=== PATIENT | male | born 1955 | race Caucasian/White ===

== ENCOUNTER 2016-11-09 07:55 | Emergency (ER) | payer OTHER ==
[2016-11-09 08:03] VITALS: BP 144/78
[2016-11-09] MEDS ORDERED: Tetan/Diph/Pertus SYR(Tdap)* 0.5 ML SYR(BOOSTRIX) use SYR IM ONE (08:30)
--- NOTE | 2016-11-09 08:58 | UC ---
Skin Complaint HPI - HPI Summary HPI Summary: THREE DAYS AGO, BEGAN WITH SMALL PIMPLE ON LEFT FOREARM; AREA SPREADING AND FIRM. NO FEVER. HAD HX OF ENDOCARDITIS THREE YEARS AGO. - History of Current Complaint Chief Complaint: UCSkin Time Seen by Provider: 11/09/16 08:10 Stated Complaint: RED AREA ON ARM Hx Obtained From: Patient Onset/Duration: Gradual Onset, Lasting Days, Still Present Skin Exposure Onset/Duration: Days Ago Onset Severity: Mild Current Severity: Mild Location: Discrete - LEFT FOREARM Character: Redness, Raised Aggravating: Nothing Alleviating: Nothing Associated Signs & Symptoms: Positive: Rash, Tenderness Related History: Possible Reaction to: Insect - Allergy/Home Medications Allergies/Adverse Reactions: Allergies Allergy/AdvReac Type Severity Reaction Status Date / Time Penicillin V Allergy Rash Verified 10/11/13 08:42 Shrimp Flavor Allergy ITCHY Verified 10/11/13 08:42 raw [email or web address] Allergy Rash Uncoded 10/11/13 08:42 Review of Systems Constitutional: Negative Skin: Rash Eyes: Negative ENT: Negative Respiratory: Negative Cardiovascular: Negative Gastrointestinal: Negative Genitourinary: Negative Motor: Negative Neurovascular: Negative Musculoskeletal: Negative Neurological: Negative Psychological: Negative All Other Systems Reviewed And Are Negative: Yes PMH/Surg Hx/FS Hx/Imm Hx Previously Healthy: Yes - Surgical History Surgical History: Yes Surgery Procedure, Year, and Place: APPENDECTOMY 1996, MITRAL VALVE 2003. LT KNEE MENISCUS REPAIR 2009 - Family History Known Family History: Positive: Cardiac Disease - Social History Occupation: Employed Full-time Lives: With Family Alcohol Use: None Alcohol Amount: DRANK HEAVILY, PER PT, UNTIL APR 2013 Substance Use Type: None Smoking Status (MU): Former Smoker Type: Cigarettes Have You Smoked in the Last Year: No When Did the Patient Quit Smoking/Using Tobacco: 2003 - Immunization History Most Recent Influenza Vaccination: unknown Most Recent Tetanus Shot: over 10 yrs ago Most Recent Pneumonia Vaccination: unknown Physical Exam Triage Information Reviewed: Yes Appearance: Well-Appearing, No Pain Distress, Well-Nourished Vital Signs: Initial Vital Signs Temp 98 F 11/09/16 07:59 Pulse 59 11/09/16 07:59 Resp 16 11/09/16 07:59 BP 144/78 11/09/16 07:59 Pulse Ox 99 11/09/16 07:59 Vital Signs Reviewed: Yes Eye Exam: Normal ENT Exam: Normal ENT: Positive: Normal ENT inspection, Hearing grossly normal, Pharynx normal, TMs normal Dental Exam: Normal Neck exam: Normal Neck: Positive: Supple, Nontender Respiratory Exam: Normal Respiratory: Positive: Chest non-tender, Lungs clear, Normal breath sounds, No respiratory distress, No accessory muscle use Cardiovascular Exam: Normal Cardiovascular: Positive: RRR, No Murmur, Pulses Normal Abdominal Exam: Normal Musculoskeletal Exam: Normal Neurological Exam: Normal Psychological: Positive: Normal Response To Family Skin: Positive: Other - 2CM X 2CM INDURATED ERRETHEMATOUS AREA ON LEFT FOREARM WITH SMALL 1MM X 1MM AREA OF FLUCTUANCE AND PURULENT DISCHARGE Course/Dx - Course Course Of Treatment: PATIENT STATES THAT HE HAS TAKEN KEFLEX IN PAST WITHOUT ANY REACTION. - Differential Diagnoses - Skin Complaint Differential Diagnoses: Abscess, Cellulitis, Eczema, Impetigo - Diagnoses Provider Diagnoses: LEFT FOREARM CELLULITIS, ABCESS Discharge - Discharge Plan Condition: Stable Disposition: HOME Prescriptions: Cephalexin CAP* [Keflex CAP*] 500 mg PO QID #40 cap Patient Education Materials: Cellulitis (ED), Abscess (ED) Referrals: Alley Garcia MD [Medical Doctor] -
--- NOTE | 2016-11-11 10:17 | ED ---
Course/Dx - Course Course Of Treatment: DAY TWO CX "NO ORGANISMS SEEN". NO CHANGE IN TREATMENT - Diagnoses Provider Diagnoses: Cellulitis
== END 2016-11-09 08:40 | disposition home or self-care (01) ==
LOC: UCEAST 07:55
DX: L03.114 Cellulitis of left upper limb (principal); L02.414 Cutaneous abscess of left upper limb; Z87.891 Personal history of nicotine dependence
CPT/HCPCS: 87070; 87205; 90471; 90715; 99212; G0463

== ENCOUNTER 2017-08-07 22:11 | Emergency (ER) | payer OTHER ==
[2017-08-08 01:11] LABS: ABS Basophils 0.1 10^3/ul (0-0.2); ABS Eosinophils 0.6 10^3/ul (0-0.6); ABS Lymphocytes 2.1 10^3/ul (1.0-4.8); ABS Monocytes 0.7 10^3/ul (0-0.8); ABS Neutrophils 6.1 10^3/ul (1.5-7.7); ABS Nucleated RBC 0 10^3/ul; Eosinophil % 6.4 % (0-6); Hematocrit 38 % (42-52); Hemoglobin 12.9 g/dl (14.0-18.0); Lymphocyte % 21.6 % (25-47); Mean Corpuscular HGB Conc 34 g/dl (31-36); Mean Corpuscular Hemoglobin 30 pg (27-31); Mean Corpuscular Volume 87 fL (80-94); Mean Platelet Volume 7.4 um3 (7.4-10.4); Nucleated Red Blood Cells % 0; Platelet Count 215 10^3/ul (150-450); Red Blood Count 4.37 10^6/ul (4.0-5.4); Red Cell Distribution Width 14 % (10.5-15); White Blood Count 9.6 10^3/ul (3.5-10.8)
[2017-08-08 01:21] LABS: INR 0.94 (0.77-1.02)
[2017-08-08 01:26] LABS: EGFR Non-African American 90.4 (>60)
--- NOTE | 2017-08-08 01:56 | ED ---
Lower Extremity - HPI Summary HPI Summary: 61-year-old male presents with right leg swelling and pain for the past week. He states he had normal ultrasound 8 days ago. He denies any new injury. He states he did hit his leg on ago in the same area by hitting it on a door. He denies any fevers. He denies any spreading redness. He states he has a history of muscle cramps. He states he was started on Lasix for the edema which was helping. He states tonight the pain got suddenly worse. He took some ibuprofen with minimal relief. He denies any chest pressures or shortness of breath. He is nonsmoker. He does have a family history of blood clots. He denies any recent travel or recent surgeries or history of malignancy. - History of Current Complaint Chief Complaint: EDExtremityLower Stated Complaint: RT LEG PAIN AND SWOLLEN Time Seen by Provider: 08/08/17 00:37 Pain Intensity: 6 - Allergies/Home Medications Allergies/Adverse Reactions: Allergies Allergy/AdvReac Type Severity Reaction Status Date / Time Penicillins Allergy Rash Verified 08/07/17 22:17 shrimp Allergy Itching Verified 08/07/17 22:17 raw [email or web address] Allergy Rash Uncoded 08/07/17 22:17 PMH/Surg Hx/FS Hx/Imm Hx Endocrine/Hematology History: Denies: Hx Diabetes, Hx Thyroid Disease Cardiovascular History: Reports: Hx Congestive Heart Failure, Hx Hypercholesterolemia, Hx Hypertension, Hx Valvular Heart Disease - s/p mitral valve repair 2003, Other Cardiovascular Problems/Disorders - ENDOCARDITIS Denies: Hx Pacemaker/ICD Respiratory History: Reports: Hx Sleep Apnea - new CPAP user, compliant 09/2013 Denies: Hx Asthma, Hx Chronic Obstructive Pulmonary Disease (COPD) GI History: Reports: Hx Gastroesophageal Reflux Disease, Other GI Disorders - former ETOH abuse-elevated LFTs Denies: Hx Ulcer Musculoskeletal History: Reports: Hx Back Problems - recurrent lower back pain in the past, Hx Orthopedic Injury - (left) knee meniscus tear Sensory History: Reports: Hx Contacts or Glasses Denies: Hx Hearing Aid Opthamlomology History: Reports: Hx Contacts or Glasses Psychiatric History: Reports: Hx Depression, Other Psychiatric Issues/Disorders - takes prozac Denies: Hx Panic Disorder - Surgical History Surgery Procedure, Year, and Place: APPENDECTOMY 1996, MITRAL VALVE 2003. LT KNEE MENISCUS REPAIR 2009 - Immunization History Date of Tetanus Vaccine: Unk Date of Influenza Vaccine: None Infectious Disease History: No Infectious Disease History: Denies: Hx Clostridium Difficile, Hx Hepatitis, Hx Human Immunodeficiency Virus (HIV), Hx of Known/Suspected MRSA, Hx Shingles, Hx Tuberculosis, Hx Known/ Suspected VRE, Hx Known/Suspected VRSA, History Other Infectious Disease, Traveled Outside the [place] in Last 30 Days - Family History Known Family History: Positive: Cardiac Disease - Social History Alcohol Use: None Alcohol Amount: DRANK HEAVILY, PER PT, UNTIL APR 2013 Substance Use Type: Reports: None Smoking Status (MU): Former Smoker Type: Cigarettes Have You Smoked in the Last Year: No Review of Systems Negative: Fever Negative: Chest Pain Negative: Shortness Of Breath Positive: Myalgia - left calf, Edema - left calf All Other Systems Reviewed And Are Negative: Yes Physical Exam Triage Information Reviewed: Yes Vital Signs On Initial Exam: Initial Vitals Temp Pulse Resp BP Pulse Ox 97.6 F 69 18 184/77 96 08/07/17 22:13 08/07/17 22:13 08/07/17 22:13 08/07/17 22:13 08/07/17 22:13 Vital Signs Reviewed: Yes Appearance: Positive: Well-Appearing Skin: Positive: Warm, Dry Head/Face: Positive: Normal Head/Face Inspection Eyes: Positive: Normal, Conjunctiva Clear Respiratory/Lung Sounds: Positive: Clear to Auscultation, Breath Sounds Present Cardiovascular: Positive: Normal, RRR Musculoskeletal: Positive: Strength/ROM Intact - right leg, Edema Right - calf, Other - Tenderness posterior aspect of right calf that feels harder than rest of leg, pulses, cap refill less than 2 seconds, sensation grossly intact. Negative: [place] Sign Right Neurological: Positive: Normal Psychiatric: Positive: Normal Diagnostics - Vital Signs Vital Signs Temp Pulse Resp BP Pulse Ox 08/08/17 01:00 55 96 08/08/17 00:43 55 96 08/08/17 00:42 126/76 08/07/17 22:13 97.6 F 69 18 184/77 96 - Laboratory Lab Results: Lab Results 08/08/17 08/08/17 08/08/17 Range/Units 00:58 00:58 00:58 WBC 9.6 (3.5-10.8) 10^3/ul RBC 4.37 (4.0-5.4) 10^6/ul Hgb 12.9 L (14.0-18.0) g/dl Hct 38 L (42-52) % MCV 87 (80-94) fL MCH 30 (27-31) pg MCHC 34 (31-36) g/dl RDW 14 (10.5-15) % Plt Count 215 (150-450) 10^3/ul MPV 7.4 (7.4-10.4) um3 Neut % (Auto) 63.8 (38-83) % Lymph % (Auto) 21.6 L (25-47) % [place] % (Auto) 7.3 H (0-7) % Eos % (Auto) 6.4 H (0-6) % Baso % (Auto) 0.9 (0-2) % Absolute Neuts (auto) 6.1 (1.5-7.7) 10^3/ul Absolute Lymphs (auto) 2.1 (1.0-4.8) 10^3/ul Absolute Monos (auto) 0.7 (0-0.8) 10^3/ul Absolute Eos (auto) 0.6 (0-0.6) 10^3/ul Absolute Basos (auto) 0.1 (0-0.2) 10^3/ul Absolute Nucleated RBC 0 10^3/ul Nucleated RBC % 0 INR (Anticoag Therapy) 0.94 (0.77-1.02) APTT 28.9 (26.0-36.3) seconds D-Dimer, Quantitative < 200 (Less Than 230) ng/mL Sodium 135 (133-145) mmol/L Potassium 3.9 (3.5-5.0) mmol/L Chloride 104 (101-111) mmol/L Carbon Dioxide 25 (22-32) mmol/L Anion Gap 6 (2-11) mmol/L BUN 18 (6-24) mg/dL Creatinine 0.86 (0.67-1.17) mg/dL Est GFR ( Amer) 116.3 (>60) Est GFR (Non-Af Amer) 90.4 (>60) BUN/Creatinine Ratio 20.9 H (8-20) Glucose 106 H (70-100) mg/dL Calcium 9.0 (8.6-10.3) mg/dL Total Bilirubin 0.40 (0.2-1.0) mg/dL AST 22 (13-39) U/L ALT 25 (7-52) U/L Alkaline Phosphatase 65 (34-104) U/L Total Protein 6.5 (6.4-8.9) g/dL Albumin 3.9 (3.2-5.2) g/dL Globulin 2.6 (2-4) g/dL Albumin/Globulin Ratio 1.5 (1-3) Result Diagrams: 08/08/17 00:58 08/08/17 00:58 Lab Statement: Any lab studies that have been ordered have been reviewed, and results considered in the medical decision making process. Lower Extremity Course/Dx - Course Course Of Treatment: 61-year-old male presents with right leg swelling and pain for the past week. He states he had normal ultrasound 8 days ago. He denies any new injury. He states he did hit his leg on ago in the same area by hitting it on a door. He denies any fevers. He denies any spreading redness. He states he has a history of muscle cramps. He states he was started on Lasix for the edema which was helping. He states tonight the pain got suddenly worse. He took some ibuprofen with minimal relief. He denies any chest pressures or shortness of breath. He is nonsmoker. He does have a family history of blood clots. He denies any recent travel or recent surgeries or history of malignancy. On exam tenderness of right calf. Right is more edematous than left. No infection seen. here at nighttime and cannot get ultrasound so d-dimer was ordered. D-dimer is normal. Labs within normal limits. We'll have follow-up with primary. We'll have given referral to ortho as this could be muscle tear? Patient understands agrees with plan. - Diagnoses Differential Diagnosis/HQI/PQRI: Positive: DVT, Sprain, Strain Provider Diagnoses: Right calf pain Discharge - Sign-Out/Discharge Documenting (check all that apply): Discharge - Discharge Plan Condition: Good Disposition: HOME Patient Education Materials: Leg Edema (ED) Referrals: Alley Garcia MD [Primary Care Provider] - Kevin Paige MD [Medical Doctor] - Additional Instructions: Follow up with primary next week Ice, elevate Take ibuprofen every 6 hours follow up with ortho Return to ED if develop any new or worsening symptoms - Billing Disposition and Condition Condition: GOOD Disposition: HOME
[2017-08-08 02:17] VITALS: BP 138/82
== END 2017-08-08 02:21 | disposition home or self-care (01) ==
LOC: ED 22:11
DX: M79.661 Pain in right lower leg (principal); R60.0 Localized edema
CPT/HCPCS: 36415; 80053; 85025; 85379; 85610; 85730; 99282